=== PATIENT | male | born 1940 | race Caucasian/White ===

== ENCOUNTER → 2017-02-01 | Day surgery (SDC) | payer MEDICARE, OTHER ==
[~2017-02-01] VITALS: Ht 170.2 cm; Wt 76.2 kg
[~2017-02-01] MED LIST: 0.9% Sodium Chloride 1,000 ML IV SCH; ASPI-628 PO; ATOR40TA69 PO; FERR325T40 PO; GLUC-181 PO; HYDR25TA4 PO; IRBE150T28 PO; Lactated Ringer's 1,000 ML IV SCH; MetoCLOpramide 5 mg/mL 2 mL Inj IVPUSH PRN; Ondansetron 2 mg/mL 2 mL Inj IVPUSH PRN; Propofol 10 mg/mL 20 mL Inj ONE; RANI300T4 PO; Sodium Chloride LOK Flush 10 mL Syringe IV PRN; fentaNYL-PF 50 mCg/mL 2 mL Inj IVPUSH PRN
--- NOTE | 2017-02-01 11:08 | PCM.HPANE ---
Patient Data Surgeon Admitting Provider: Attending Provider:Sebastian Nichole MD Primary Care Physician:Monika Lovell DO Other Provider:Isaura Alonzo Anesthesia Reason for Visit Intestinal Metaplasia Of Gastric Mucosa Ht/WT & BMI Body Mass Index Allergies Coded Allergies: omeprazole (Verified Allergy, Unknown, 01/30/17) tramadol (Verified Allergy, Unknown, 01/30/17) Past Anesthesia History Anesthesia History: Denies:: Abnormal Airway, Anesthesia Reactions, Difficult Intubation, Fam Anesthesia Reaction, Fam Malignant Hypertherm, Malignant Hyperthermia Diabetes History Hx Diabetes?: No MRSA MRSA: No Medications Blood Thinner: Aspirin Reported Medications Ranitidine 300 Mg Glapzp453 Mg PO BID 30 Days Ref 0 07/30/14 Gluc/Efra-MSM#1/C/Raffy/Isaias/Bor (Osteo Bi-Flex Caplet)1 Each Tablet1 Each PO DAILY 07/30/14 Ferrous Sulfate (Iron)325 Mg [id number] Mg PO DAILY 07/30/14 Irbesartan 150 Mg [id number] Mg PO HS 07/30/14 Hydrochlorothiazide 25 Mg Prozkj38 Mg PO DAILY 30 Days Ref 0 07/30/14 Atorvastatin Calcium 40 Mg Cuinmn95 Mg PO DAILY #30 TABLET Ref 0 07/30/14 Aspirin (Aspir 81)81 Mg Tablet.dr81 Mg PO DAILY Ref 0 07/30/14 History History of ENT Problems?: No HEENT History: Denies:: Abnormal Airway Cataracts Difficult Intubation Dysphagia Hearing Problem Sinus Problem TMJ Denture Type: Full- Upper Teeth Condition: Within Normal Limits Hx of Heart Problems?: No Cardiovascular History: Denies:: AICD Abdominal Aortic Aneurism Atrial Fibrillation Cardiac Surgery Chest Pain Heart Murmur Hypertension Irregular Heartbeat Pacemaker Valvular Heart Disease Hx of Respiratory Problem?: Yes Respiratory History: Positive for:: Pneumonia Denies:: Asthma COPD Cough Hemoptysis Oxygen Administration Tuberculosis Use of C-PAP Machine Hx Neurologic Problems?: No Neurological History: Denies:: CVA Dementia Headaches Multiple Sclerosis Parkinson's Disease Seizures Hx of GI Problems?: Yes Hx of Problems?: No HX of Peritoneal Dialysis: No Male Hx: Denies:: Prostate Problems Skin History: Positive for:: History Skin Disorders? (rash left leg, unsure of cause ) Denies:: Pressure Ulcers Hx Musculoskeletal Problems?: Yes Musculoskeletal History: Positive for:: Joint Replacement Hx of Psycho/Social Problems?: No Psycho Social History: Denies:: Anxiety Hx Depression Hx Surgeries?: Yes (partial right knee,) Hx Any Other Health Problems?: Yes Other History: Denies:: Cancer Thyroid Disease History Blood Transfusions: Denies:: Blood Transfusions Hx Diabetes: No Hx Alcohol Use: NoHx Substance Use: No Smoking Status: Former Smoker Stop/Bang Risk Assessment Category Category 1A: Patient has history of documented sleep apnea, and HAS NOT received any narcotic, sedative or anesthesia administration during this stay. Category 1B: Patient has history of documented sleep apnea, and HAS received any narcotic , sedative or anesthesia administration during this stay Category 2: Patient has SUSPECTED Obstructive Sleep Apnea, and HAS received any narcotic , sedative or anesthesia administration during this stay. Category 3: Patient has SUSPECTED Obstructive Sleep Apnea and HAS NOT received narcotic, sedative or anesthesia administration during this stay. Category 4: Outpatient in Procedural Areas with known sleep apnea or who screen positive for High Risk via the STOP/BANG questionnaire. Exam Exam General Appearance: Alert, Oriented X3, Cooperative, No Acute Distress HEENT/AIRWAY: MP 1 Lungs: Normal Air Movement Heart: Regular Rate/Rhythm Plan Impression Patient chart reviewed, patient interviewed and anesthestic plan with risks, benefits, and alternatives discussed, and informed consent obtained. NPO per Anesth. Guidelines: Yes ASA Physical Status: ASA2 Mod Systemic Disease Anesthetic Plan: MAC Bene/Risks/Altern/Consents: Yes HP Complete Prior to Induction: Yes Harris Butcher MD Feb 01, 2017 11:08
[2017-02-01 11:24] VITALS: BP 131/74; PULSE 54; RESP 16; O2SAT 98
[2017-02-01 12:31] VITALS: BP 105/59; PULSE 50; RESP 12; O2SAT 99
[2017-02-01 12:42] VITALS: BP 115/64; PULSE 54; RESP 12; O2SAT 99
[2017-02-01 12:51] VITALS: BP 101/67; PULSE 62; RESP 12; O2SAT 97
--- NOTE | 2017-02-01 14:15 | PCM.ANEP1 ---
Post Anesthesia PACU Phase 1 Assessment Vital Signs Vital Signs Date Time Temp Pulse Resp B/P Pulse Ox O2 Delivery O2 Flow Rate FiO2 02/01/17 12:51 62 12 101/67 97 Room Air 02/01/17 12:42 54 12 115/64 99 Room Air 02/01/17 12:31 50 12 105/59 99 Nasal Cannula 2 02/01/17 11:24 54 16 131/74 98 Room Air Anesthetic Administered: MAC Level of Alertness: Awake, talking Pain: No Nausea or Vomiting: No CV Function & Hydration Stable: Yes Airway Device: None Lungs: Normal Air Movement PACU Phase 2 Assessment Complications: No Follow up Care: N/A Patient Instructions Provided: N/A Harris Butcher MD Feb 01, 2017 14:15
--- NOTE | 2017-02-01 14:31 | ENDO ---
[address] [address] ENDOSCOPY PROCEDURE PATIENT: TUCKER WALTER : 1940 MR#: [id number] ADMIT: 02/01/2017 JOB ID: [id number] DATE: 02/01/2017 PROCEDURE: Esophagogastroduodenoscopy (EGD). INDICATION: Patient with a history of gastric intestinal metaplasia. ANESTHESIA: Patient's ASA classification, Mallampati score, and medications as per anesthesia note. INSTRUMENT USED: GIF H 180 J PROCEDURE DETAILS: After informed consent was obtained, the patient was brought into the GI suite, where he was placed on oxygen via nasal cannula and monitored with continuous pulse oximeter, telemetry, and blood pressure monitoring. A time-out was performed, then he was placed in the left lateral decubitus position and medications were administered for sedation. The standard EGD scope was inserted through the bite block and advanced under direct visualization to the second portion of duodenum without difficulty. FINDINGS: 1. Normal appearing duodenal bulb, first and second portion. 2. At the pylorus, the mucosa had a metaplastic-appearing appearance. Multiple random biopsies were obtained. The remainder of the gastric exam revealed erythema scattered throughout the antrum and body of the stomach. Multiple random gastric biopsies were obtained. 3. Retroflexed views in the gastric body revealed a normal-appearing cardia and fundus. 4. Normal appearing GE junction at 38 cm. 5. Normal-appearing esophagus. IMPRESSION: 1. Mild gastritis. 2. Metaplastic appearing mucosa of the pylorus. RECOMMENDATIONS: 1. Await biopsy results. 2. Follow up in GI Clinic in 2-4 weeks. COMPLICATIONS: None. ESTIMATED BLOOD LOSS: Less than 5 mL. CC: Rosaura Lovell MD
--- NOTE | 2017-02-05 17:01 | PATH ---
SURGICAL PATHOLOGY Attending Physician:Hyacinth Donato CASE STATUS: Signed Out PATIENT NAME: TUCKER WALTER JR PID: [id number] : 1940 DATE COLLECTED:02/01/2017 22:12 SPECIMEN: 1: Gastric, Biopsy 2: Gastric, Biopsy CLINICAL HISTORY: 1). PYLORUS BIOPSY 2). RANDOM GASTRIC, RULE OUT H.PYLORI FINAL DIAGNOSIS: 1. Pylorus, Biopsy: Gastric antral-type mucosa with chronic gastritis and intestinal metaplasia (two of two pieces). Negative for Helicobacter organisms by immunohistochemistry. Negative for dysplasia or malignancy. 2. Stomach, Biopsy: Gastric body mucosa with no diagnostic abnormality. Helicobacter organisms not identified. Negative for intestinal metaplasia, dysplasia or malignancy. ICD10: K29.7 GROSS DESCRIPTION: The specimen is received in two formalin filled containers labeled with the patient's name. 1). The specimen is labeled "pylorus" and consists of 2 portions of tissue which aggregate to 0.3 x 0.3 x 0.2 CM. The specimen is entirely submitted in cassette 1A. 2). The specimen is labeled "random gastric and "and consists of 5 portions of tissue which aggregate to 0.4 x 0.4 x 0.2 CM. The specimen is entirely submitted in cassette 2A. 02/01/2017DC MICRO DESCRIPTION: Part 1: An immunohistochemical stain was performed to evaluate for Helicobacter organisms and is negative. A control stain showed appropriate reactivity. * This test was developed and its performance characteristics determined by [facility]. It has not been cleared or approved by the U.S. Food and Drug Administration. The FDA has determined that such clearance or approval is not necessary. This test is used for clinical purposes. It should not be regarded as investigational or for research. ICD-9 CODES: CPT CODES: 1: 43407, 42327 2: 95665 Electronically Signed Out Luis Marcum MD, Ph.D. [facility] [address], [place] [address] Technical component performed at [facility], [address], [place], [address]
== END | disposition home or self-care (01) ==
LOC: END 00:58
PROVIDERS: ATTEND Internal Medicine Gastroenterology
DX: K31.89 Other diseases of stomach and duodenum (principal); K29.70 Gastritis, unspecified, without bleeding; Z79.82 Long term (current) use of aspirin; Z79.899 Other long term (current) drug therapy; Z87.891 Personal history of nicotine dependence
CPT/HCPCS: 43239; J2704; J7120